=== PATIENT | female | born 1985 | race Caucasian/White ===

== ENCOUNTER 2020-04-06 03:26 | Emergency (ER) | payer SELFPAY ==
[2020-04-06 03:35] VITALS: BP 134/88; PULSE 100; RESP 16; TEMP 36.8; O2SAT 100; BMI 38.0
--- NOTE | 2020-04-06 03:47 | W.ED.DENTAL ---
HPI - Dental/Oral General: Chief complaint: Dental/Oral Stated complaint: oral pain Time Seen by Provider: 04/06/20 03:31 Source: patient Mode of arrival: ambulatory Limitations: no limitations History of Present Illness: HPI Narrative: 34-year-old female states she is having pain over the left lower molar. Patient states she saw dentist 2 weeks ago informed her she needs to have her left lower wisdom tooth removed. States the pain increased tonight and rates it a 9 out of 10. She has not followed up with a dentist. She denies any difficulty swallowing. MD Complaint: tooth pain Location: Tooth # (17) Onset (ago): week(s) Duration: constant Severity: severe Relieving factors: nothing Exacerbating factors: nothing Associated symptoms: Denies fever(s) Review of Systems Const: Denies: fever(s), chills, body aches or change in appetite Eyes: Denies: blurry vision or eye discomfort ENMT: Reports: mouth pain Card: Denies: chest pain Resp: Denies: dyspnea GI: Denies: abdominal pain, nausea, vomiting or diarrhea : Denies: dysuria Musc: Denies: neck pain or back pain Skin/Breast: Denies: rash Neuro: Denies: headache(s) Psych: Denies: depression Paulo/Lymph: Denies: easy bruising All/Imm: Denies: urticaria PFS ED PFSH: Medical History (Updated 04/06/20 @ 03:39 by Jan Lopez MD) Bipolar I disorder, most recent episode mixed, severe without psychotic features Generalized anxiety disorder Social History (Updated 10/24/19 @ 15:20 by Leyla Canada LPN) Smoking and tobacco status: former smoker Female Reproductive History: Date of last menstrual period: 04/06/20 Physical Exam Const: COMMON NORMALS: no acute distress, patient oriented x3 and healthy appearing HENMT: COMMON NORMALS: normocephalic and atraumatic HEAD & SCALP: normocephalic and atraumatic OTHER: Tenderness over left lower molar with inflammation of her gums. No abscess formation and no trismus Eye: COMMON NORMALS: Equal, round and reactive pupils present and EOMs intact bilaterally PUPIL: Yes Equal, round and reactive pupils present Neck/C-Spine: COMMON NORMALS: full ROM and supple Chest: COMMONS NORMALS: normal inspection of the chest and normal palpation of entire chest wall Resp: COMMON NORMALS: normal respiratory effort, No retractions, No use of accessory muscles and clear to auscultation bilaterally AUSCULTATION: clear to auscultation bilaterally Cardio: COMMON NORMALS: regular rate, regular rhythm and No murmurs present (Cardio) RATE: regular rate RHYTHM: regular rhythm GI: COMMON NORMALS: Normal to inspection, nondistended, normoactive bowel sounds present, Soft to palpation, non-tender and no masses PALPATION: Yes Soft to palpation Extremity: COMMON NORMALS: normal to inspection and full ROM Neuro: COMMON NORMALS: patient oriented x3, moves all extremities and no focal motor deficits Psych: COMMON NORMALS: mental status grossly normal, Normal thought process present and cooperative THOUGHT PROCESS: Normal thought process present Skin: COMMON NORMALS: no rashes or lesions noted and no wounds GENERAL SKIN EXAM: no rashes or lesions noted Course Vital Signs: Vital signs: Vital Signs Temperature 98.2 F 04/06/20 03:35 Pulse Rate 100 04/06/20 03:35 Respiratory Rate 16 04/06/20 03:35 Blood Pressure 134/88 04/06/20 03:35 Pulse Oximetry 100 04/06/20 03:35 MDM - Dental/Oral MDM Narrative: Medical decision making narrative: Patient presents with dental pain with no abscess or trismus. Patient placed on antibiotics along with pain meds and is to follow-up with a dentist as soon as possible. She is return if worsening. She understands agrees the plan. Discharge Plan Discharge Patient Disposition: Home Clinical Impression: Pain, dental Condition: Stable Prescriptions: New Keflex 500 mg capsule 500 mg PO Q6H 7 Days Qty: 28 RF: 0 Naprosyn 500 mg tablet 500 mg PO BID PRN (Reason: pain) Qty: 20 RF: 0 No Action trazodone 50 mg tablet 50 mg PO .QHS PRN (Reason: sleep) Qty: 30 RF: 3 lamotrigine [Lamictal] 100 mg tablet 100 mg PO BID Qty: 60 RF: 3 melatonin 5 mg tablet 5 mg PO .QHS PRN (Reason: sleep) Qty: 30 RF: 3 Discharge Orders: Discharge Order (Routine); Ordered 04/06/20 Ordered By: Jan Lopez Referrals: Sandy Yoon MD [Physician] - Savage Rios MD [Physician] - Discharge Diet: Advance as tolerated Discharge Activity: Resume usual activity Patient Instructions: Toothache (ED) Coding Level of Care Code ED President And Chief Operating Officer for [facility]
[2020-04-06] MEDS: HYDROcodone-acetaminophen 7.5-325 mg Tablet 1 TAB PO (03:49)
== END 2020-04-06 03:53 | disposition home or self-care (01) ==
LOC: ER 03:44
PROVIDERS: Emergency Provider Emergency Medicine
DX: K08.89 Other specified disorders of teeth and supporting structures (principal); Z87.891 Personal history of nicotine dependence
CPT/HCPCS: 12345; 99281; 99282

== ENCOUNTER 2020-05-11 23:42 | Emergency (ER) | payer SELFPAY ==
[2020-05-12 01:54] VITALS: BP 159/87; PULSE 88; RESP 16; TEMP 36.3; O2SAT 97; BMI 37.7
--- NOTE | 2020-05-12 03:34 | ED_ITS ---
HPI - General Adult General: Chief complaint: General Medical Stated complaint: strep throatg Time Seen by Provider: 05/12/20 03:34 History of Present Illness: HPI narrative: Patient is a 34-year-old female comes to the ED with a sore throat and right ear pain. Patient says symptoms started on Wednesday. Patient was seen at her PCP on Wednesday as well and she was diagnosed with strep throat and acute otitis media. She was put on amoxicillin p.o. patient reports no improvement over the past couple days even after taking amoxicillin. Patient told me that a few weeks ago she had her wisdom teeth removed and later developed a dry socket. She then was put on amoxicillin for over 10 days. Patient just finished a course of amoxicillin and then was diagnosed with a strep throat and put on another course of amoxicillin. Denies fever, chills, cough, nasal congestion or drainage, abdominal pain, nausea/vomiting, diarrhea, constipation, dysuria and hematuria. Associated symptoms: Deny chest pain, dyspnea, headache(s), nausea, rash, palpitations or vomiting Review of Systems Const: Denies: fever(s), chills or fatigue Eyes: Denies: change in vision or eye discomfort ENMT: Reports: throat pain and ear or mastoid pain (right ear pain); Denies: odynophagia, nasal discharge or nasal congestion Card: Denies: chest pain, palpitations, edema, swelling of feet/ankles, dyspnea on exertion or orthopnea Resp: Denies: dyspnea, productive cough or non-productive cough GI: Denies: abdominal pain, nausea, vomiting, diarrhea, constipation or hematochezia : Denies: flank pain, dysuria or hematuria Musc: Denies: neck pain, back pain or extremity swelling Skin/Breast: Denies: rash or new lesions Neuro: Denies: headache(s), numbness in extremities or weakness in extremities PFS ED PFSH: Medical History Bipolar I disorder, most recent episode mixed, severe without psychotic features Generalized anxiety disorder Social History Smoking and tobacco status: former smoker Female Reproductive History: Date of last menstrual period: 04/06/20 Physical Exam Const: COMMON NORMALS: no acute distress, patient oriented x3, healthy appearing and alert GENERAL APPEARANCE: cooperative and comfortable HENMT: COMMON NORMALS: normocephalic HEAD & SCALP: normocephalic TYMPANIC MEMBRANE: TM abnormal TM laterality: right Details: erythematous and fluid behind TM MOUTH: Normal oral and palatal mucosa present THROAT: uvula midline, posterior oropharynx abnormal erythema and exudates (White exudate on right side.) and tonsils absent Neck/C-Spine: COMMON NORMALS: supple GENERAL: Yes normal visual inspection Resp: COMMON NORMALS: normal respiratory effort, No retractions, No use of accessory muscles and clear to auscultation bilaterally EFFORT & INSPECTION: Yes able to speak in complete sentences, No respiratory distress, No labored and No Actively coughing AUSCULTATION: clear to auscultation bilaterally Cardio: COMMON NORMALS: regular rate, regular rhythm, S1 normal heart sound present, S2 normal heart sound present, No gallops present (Cardio), No clicks present (Cardio), No murmurs present (Cardio) and Peripheral pulses 2+ throughout RATE: regular rate RHYTHM: regular rhythm HEART SOUNDS: S1 normal heart sound present and S2 normal heart sound present PERIPHERAL PULSES: Peripheral pulses 2+ throughout GI: COMMON NORMALS: Normal to inspection, nondistended, normoactive bowel so unds present, Soft to palpation, non-tender and no masses PALPATION: Yes Soft to palpation : COMMON NORMALS: Yes no CVA tenderness BLADDER/KIDNEY EXAM: Yes no CVA tenderness Back/Pelvis: COMMON NORMALS: no CVA tenderness Extremity: COMMON NORMALS: normal to inspection Neuro: COMMON NORMALS: patient oriented x3 and moves all extremities SENSORIUM/ORIENTATION: Yes alert Skin: GENERAL SKIN EXAM: dry skin Course Vital Signs: Vital signs: Vital Signs Temperature 97.4 F L 05/12/20 01:54 Pulse Rate 88 05/12/20 01:54 Respiratory Rate 16 05/12/20 01:54 Blood Pressure 159/87 05/12/20 01:54 Pulse Oximetry 97 05/12/20 01:54 MDM - General Adult MDM Narrative: Medical decision making narrative: Patient is a 34-year-old female comes to the ED with sore throat and her right ear pain. Patient was in urgent care on Wednesday and diagnosed with strep throat and right ear infection and put on amoxicillin. Patient had previously been on amoxicillin within the last month. She comes to the ED after being on amoxicillin for 4 days and not feeling any improvement. Physical exam showed some erythema of right TM and erythema and some exudates of the right side of the posterior oropharynx. CBC, CMP were unremarkable. Harnett and strep were both negative. Patient diagnosed with acute pharyngitis and acute otitis media. She was sent home with a prescription for cephalexin and told to follow-up with PCP in 7 to 10 days. Return to ED precautions given. Patient understood and agree with plan. Lab Data: Attestation: I reviewed the patient's lab results. Labs: Lab Results 05/12/20 05/12/20 05/12/20 Range/Units 04:35 04:40 04:40 WBC 9.2 (4.0-10.0) 10^3/ uL RBC 4.11 (4.1-5.3) 10^6/u L Hgb 12.7 (11.5-15.3) g/dL Hct 38.9 (37.0-47.0) % MCV 94.6 (81-99) fL MCH 30.9 (28.0-34.0) pg MCHC 32.6 (30.0-36.0) g/dL RDW 11.9 L (12.1-15.1) % Plt Count 358 (130-400) 10^3/c mm MPV 9.7 (7.4-10.4) fL Neut % (Auto) 56.3 % Lymph % (Auto) 33.8 % Harnett % (Auto) 6.0 % Eos % (Auto) 3.1 % Baso % (Auto) 0.5 % Neut # (Auto) 5.20 (1.8-7.7) 10^3/u L Lymph # (Auto) 3.1 (0.8-4.8) 10^3/u L Harnett # (Auto) 0.6 (0.2-0.9) 10^3/u L Eos # (Auto) 0.3 (0.0-0.8) 10^3/u L Baso # (Auto) 0.1 (0.0-0.1) 10^3/u L Nucleated RBC % (a uto) 0 % Nucleated RBCs # 0.0 /100WBC Sodium 141 (136-145) mmol/L Potassium 3.9 (3.5-5.1) mmol/L Chloride 109 H (98-107) mmol/L Carbon Dioxide 24 (22-29) mmol/L Anion Gap 11.9 (5-19) BUN 14 (6-20) mg/dL Creatinine 0.6 (0.5-0.9) mg/dL GFR Calculation 115.1 (90-130) mL/min Glucose 117 H (65-115) mg/dL Calculated Osmolal ity 289 (285-295) mOsm/k g Calcium 8.9 (8.5-10.5) mg/dL Total Bilirubin 0.2 (0.15-1.2) mg/dL AST 9 (0-32) U/L ALT 14 (0-33) U/L Alkaline Phosphata se 49 (35-105) IU/L Total Protein 6.9 (6.6-8.7) g/dL Albumin 4.2 (3.5-5.2) g/dL Globulin 2.7 (1.3-4.6) g/dL Monoscreen (Negative) Group A Strep Rapi d Negative (Negative) 05/12/20 Range/Units 04:40 WBC (4.0-10.0) 10^3/ uL RBC (4.1-5.3) 10^6/u L Hgb (11.5-15.3) g/dL Hct (37.0-47.0) % MCV (81-99) fL MCH (28.0-34.0) pg MCHC (30.0-36.0) g/dL RDW (12.1-15.1) % Plt Count (130-400) 10^3/c mm MPV (7.4-10.4) fL Neut % (Auto) % Lymph % (Auto) % Harnett % (Auto) % Eos % (Auto) % Baso % (Auto) % Neut # (Auto) (1.8-7.7) 10^3/u L Lymph # (Auto) (0.8-4.8) 10^3/u L Harnett # (Auto) (0.2-0.9) 10^3/u L Eos # (Auto) (0.0-0.8) 10^3/u L Baso # (Auto) (0.0-0.1) 10^3/u L Nucleated RBC % (a uto) % Nucleated RBCs # /100WBC Sodium (136-145) mmol/L Potassium (3.5-5.1) mmol/L Chloride (98-107) mmol/L Carbon Dioxide (22-29) mmol/L Anion Gap (5-19) BUN (6-20) mg/dL Creatinine (0.5-0.9) mg/dL GFR Calculation (90-130) mL/min Glucose (65-115) mg/dL Calculated Osmolal ity (285-295) mOsm/k g Calcium (8.5-10.5) mg/dL Total Bilirubin (0.15-1.2) mg/dL AST (0-32) U/L ALT (0-33) U/L Alkaline Phosphata se (35-105) IU/L Total Protein (6.6-8.7) g/dL Albumin (3.5-5.2) g/dL Globulin (1.3-4.6) g/dL Monoscreen Negative (Negative) Group A Strep Rapi d (Negative) Discharge Plan Discharge Patient Disposition: Home Clinical Impression: Acute otitis media Qualifiers: Otitis media type: serous Laterality: right Recurrence: non-recurrent Qualified Code(s): H65.01 - Acute serous otitis media, right ear Pharyngitis, acute Qualifiers: Pharyngitis/tonsillitis etiology: unspecified etiology Qualified Code(s): J02.9 - Acute pharyngitis, unspecified Condition: Stable Prescriptions: New cephalexin 500 mg capsule 500 mg PO Q8H 10 Days Qty: 30 RF: 0 No Action trazodone 50 mg tablet 50 mg PO .QHS PRN (Reason: sleep) Qty: 30 RF: 3 lamotrigine [Lamictal] 100 mg tablet 100 mg PO BID Qty: 60 RF: 3 melatonin 5 mg tablet 5 mg PO .QHS PRN (Reason: sleep) Qty: 30 RF: 3 Naprosyn 500 mg tablet 500 mg PO BID PRN (Reason: pain) Qty: 20 RF: 0 Discharge Orders: Discharge Order (Routine); Ordered 05/12/20 Ordered By: Sven Perez Discharge Diet: Regular Discharge Activity: Resume usual activity Patient Instructions: Otitis Media - Adult Activity Restrictions/Additional Instructions: Follow-up with medical provider as directed in 7-10 days. Take medications as prescribed. Return to the ER or your medical provider if condition worsens. Please read and understand discharge instructions. If any questions, please ask. Coding Level of Care Code ED Project Production Engineer for [facility] Fwd Exam Comprehensive
[2020-05-12 05:00] LABS: Basophils # 0.1 10^3/uL (0.0-0.1); Basophils % 0.5 %; Eosinophils # 0.3 10^3/uL (0.0-0.8); Eosinophils % 3.1 %; Hematocrit 38.9 % (37.0-47.0); Hemoglobin 12.7 g/dL (11.5-15.3); Lymphocytes # 3.1 10^3/uL (0.8-4.8); Lymphocytes % 33.8 %; Mean Corpuscular HGB Conc 32.6 g/dL (30.0-36.0); Mean Corpuscular Hemoglobin 30.9 pg (28.0-34.0); Mean Corpuscular Volume 94.6 fL (81-99); Mean Platelet Volume 9.7 fL (7.4-10.4); Monocytes # 0.6 10^3/uL (0.2-0.9); Neutrophils % 56.3 %; Nucleated Red Blood Cells % 0 %; Platelet Count 358 10^3/cmm (130-400); Red Blood Count 4.11 10^6/uL (4.1-5.3); Red Cell Distribution Width 11.9 % (12.1-15.1); White Blood Count 9.2 10^3/uL (4.0-10.0)
[2020-05-12 05:24] LABS: Monoscreen Negative (Negative)
[2020-05-12 05:26] LABS: Alanine Aminotransferase 14 U/L (0-33); Albumin Level 4.2 g/dL (3.5-5.2); Alkaline Phosphatase 49 IU/L (35-105); Anion Gap 11.9 (5-19); Aspartate Amino Transferase 9 U/L (0-32); Blood Urea Nitrogen 14 mg/dL (6-20); Calcium 8.9 mg/dL (8.5-10.5); Carbon Dioxide 24 mmol/L (22-29); Chloride 109 mmol/L (98-107); Globulin 2.7 g/dL (1.3-4.6); Glomerular Filtration Rate 115.1 mL/min (90-130); Glucose 117 mg/dL (65-115); Osmolality Calculated 289 mOsm/kg (285-295); Potassium 3.9 mmol/L (3.5-5.1); Sodium 141 mmol/L (136-145); Total Bilirubin 0.2 mg/dL (0.15-1.2); Total Protein 6.9 g/dL (6.6-8.7)
[2020-05-12 05:56] LABS: Rapid Strep A Test Negative (Negative)
[2020-05-12] MEDS: cephALEXin 500 mg Capsule PO (05:59)
[2020-05-12 06:08] VITALS: BP 139/80; PULSE 84; RESP 18; O2SAT 97
--- NOTE | 2020-05-12 06:24 | PC.NURSE ---
i agree with pt assessment.
== END 2020-05-12 06:15 | disposition home or self-care (01) ==
PROVIDERS: Emergency Provider Physician Assistant
DX: J02.9 Acute pharyngitis, unspecified (principal); H65.01 Acute serous otitis media, right ear; Z87.891 Personal history of nicotine dependence
CPT/HCPCS: 12345; 80053; 85025; 86308; 87040; 87081; 87880; 99282; 99283